=== PATIENT | female | born 1950 | race Caucasian/White ===

== ENCOUNTER → 2019-10-21 | Outpatient (CLI) | payer BC, MEDICARE ==
[2019-10-21 16:20] LABS: BASOPHILS % 0.6 % (0.0-2.0); EOSINOPHILS % 1.8 % (0.0-5.0); HEMATOCRIT. 39.8 % (36.0-48.0); HEMOGLOBIN. 13.7 g/dL (12.0-16.0); LYMPHOCYTES % 42.2 % (20.0-50.0); MEAN CORPUSCULAR HEMOGLOBIN 31.2 pg (28.0-32.0); MEAN CORPUSCULAR VOLUME 90.7 fL (81.0-99.0); MONOCYTES % 5.7 % (2.0-8.0); NEUTROPHILS % 49.7 % (40.0-76.0); PLATELET 198 x1000/uL (130-400); RED BLOOD CELL COUNT 4.39 mill/uL (4.2-5.4); RED CELL DISTRIBUTION WIDTH 12.5 % (11.6-14.6)
[2019-10-21 16:24] LABS: CHLORIDE 109 mEq/L (98-107)
[2019-10-21 16:31] LABS: LDL CHOLESTEROL 90 mg/dL (5-100)
[2019-10-21 16:33] LABS: HDL CHOLESTEROL 56 mg/dL (40-59); T4 FREE 1.11 ng/dL (0.76-1.46)
[2019-10-21 16:52] LABS: FOLIC ACID (FOLATE) SERUM 4.4 ng/mL (>5.38)
[2019-10-23 09:06] LABS: VITAMIN D 25-OH 14.7 ng/mL (30.0-100.0)
[2019-10-23 15:06] LABS: ANTI-NUCLEAR ANTIBODIES DIRECT Positive (Negative)
[2019-10-28 04:11] LABS: METHYLMALONIC ACID 151 nmol/L (0-378)
== END | disposition home or self-care (01) ==
LOC: LAB 15:05
PROVIDERS: ATTEND Internal Medicine Endocrinology, Diabetes & Metabolism
DX: M47.812 Spondylosis without myelopathy or radiculopathy, cervical region (principal); M25.78 Osteophyte, vertebrae; I10 Essential (primary) hypertension; E78.5 Hyperlipidemia, unspecified; M25.511 Pain in right shoulder; M25.512 Pain in left shoulder
CPT/HCPCS: 36415; 72040; 73030; 80053; 80061; 82306; 82607; 82746; 83036; 83921; 84439; 84443; 85025; 85651; 86038; 86431

== ENCOUNTER → 2020-04-05 | Outpatient (CLI) | payer BC, MEDICARE ==
[2020-04-05 10:52] LABS: BASOPHILS % 0.6 % (0.0-2.0); EOSINOPHILS % 4.5 % (0.0-5.0); HEMATOCRIT. 38.6 % (36.0-48.0); HEMOGLOBIN. 13.2 g/dL (12.0-16.0); LYMPHOCYTES % 33.1 % (20.0-50.0); MEAN CORPUSCULAR HEMOGLOBIN 31.1 pg (28.0-32.0); MEAN CORPUSCULAR VOLUME 90.9 fL (81.0-99.0); MONOCYTES % 8.7 % (2.0-8.0); NEUTROPHILS % 53.1 % (40.0-76.0); PLATELET 203 x1000/uL (130-400); RED BLOOD CELL COUNT 4.25 mill/uL (4.2-5.4); RED CELL DISTRIBUTION WIDTH 13.2 % (11.6-14.6)
[2020-04-05 11:03] LABS: CHLORIDE 109 mEq/L (98-107)
[2020-04-05 12:06] LABS: FOLIC ACID (FOLATE) SERUM 16.8 ng/mL (>5.38)
[2020-04-06 17:06] LABS: ANTI-DNA DOUBLE STRANDED QUANT 1 IU/mL (0-9); ANTI-NUCLEAR ANTIBODIES DIRECT Positive (Negative); ANTI-SCLERODERMA-70 AB <0.2 AI (0.0-0.9); RNP ANTIBODY 0.2 AI (0.0-0.9); SJOGRENS ANTI SS-A < 0.2 AI (0.0-0.9); SJOGRENS ANTI SS-B < 0.2 AI (0.0-0.9); SMITH ABS < 0.2 AI (0.0-0.9)
[2020-04-07 13:06] LABS: ACTIN (SMOOTH MUSCLE) ANTIBODY 23 Units (0-19)
[2020-04-11 13:06] LABS: ANTI-PARIETAL CELL AB 1.9 Units (0.0-20.0)
== END | disposition home or self-care (01) ==
LOC: LAB 10:16
PROVIDERS: ATTEND Internal Medicine Endocrinology, Diabetes & Metabolism
DX: M17.12 Unilateral primary osteoarthritis, left knee (principal); M25.762 Osteophyte, left knee; E53.8 Deficiency of other specified B group vitamins
CPT/HCPCS: 36415; 73560; 80053; 82306; 82746; 85025; 85651; 86038

== ENCOUNTER 2024-06-09 16:36 | Emergency (ER) | payer BC, MEDICARE ==
[~2024-06-09] VITALS: Ht 152.4 cm; Wt 73.0 kg
[2024-06-09 16:47] VITALS: BP 139/60; RESP 16; TEMP 98; O2SAT 100
[2024-06-09 16:49] VITALS: PULSE 72; O2SAT 98
[2024-06-09] MEDS ORDERED: ACETAMINOPHEN 325MG TABLET PO ONE (20:30)
[2024-06-09 21:34] LABS: CHLORIDE 106 mEq/L (98-107); POTASSIUM 4.6 mEq/L (3.5-5.1); SODIUM 139 mEq/L (136-145)
[2024-06-09 21:35] LABS: CALCIUM 10.3 mg/dL (8.7-10.4); CARBON DIOXIDE 28 mEq/L (21-32)
[2024-06-09 21:40] LABS: CREATININE 0.7 mg/dL (0.6-1.0); GLUCOSE 92 mg/dL (70-105); UREA NITROGEN BLOOD 9 mg/dL (9-23)
[2024-06-09 21:56] LABS: BASOPHILS % 0.8 % (0.0-2.0); EOSINOPHILS % 1.9 % (0.0-5.0); HEMATOCRIT. 43.2 % (36.0-48.0); HEMOGLOBIN. 14.2 g/dL (12.0-16.0); LYMPHOCYTES % 37.9 % (20.0-50.0); MEAN CORPUSCULAR HEMOGLOBIN 29.8 pg (28.0-32.0); MEAN CORPUSCULAR HGB CONC 32.8 g/dL (31.0-37.0); MEAN CORPUSCULAR VOLUME 90.9 fL (81.0-99.0); MEAN PLATELET VOLUME 7.1 fl (7.4-10.4); MONOCYTES % 4.8 % (2.0-8.0); NEUTROPHILS % 54.6 % (40.0-76.0); PLATELET 214 x1000/uL (130-400); RED BLOOD CELL COUNT 4.75 mill/uL (4.2-5.4); RED CELL DISTRIBUTION WIDTH 12.8 % (11.6-14.6); WHITE BLOOD COUNT 5.9 x1000/uL (4.5-11.0)
[2024-06-09] MEDS ORDERED: ACETAMINOPHEN 325MG TABLET PO NR (22:30)
[2024-06-09] MEDS ORDERED: OFLO5DRO4 RIGHT EAR (23:21)
== END 2024-06-09 22:27 | disposition home or self-care (01) ==
LOC: ER 16:36
DX: H92.02 Otalgia, left ear (principal)
CPT/HCPCS: 36415; 80048; 85025; 99283

== ENCOUNTER 2024-09-14 20:00 | Inpatient (IN) | payer BC, MEDICARE ==
[~2024-09-14] VITALS: Ht 162.6 cm; Wt 68.0 kg
[~2024-09-14 20:00] MED LIST: OFLO5DRO4 RIGHT EAR
[2024-09-14 20:51] LABS: HEMATOCRIT. 40.8 % (36.0-48.0); HEMOGLOBIN. 13.5 g/dL (12.0-16.0); MEAN CORPUSCULAR HEMOGLOBIN 30.2 pg (28.0-32.0); MEAN CORPUSCULAR VOLUME 91.3 fL (81.0-99.0); MEAN PLATELET VOLUME 6.9 fl (7.4-10.4); PLATELET 195 x1000/uL (130-400); RED BLOOD CELL COUNT 4.47 mill/uL (4.2-5.4); RED CELL DISTRIBUTION WIDTH 13.2 % (11.6-14.6); WHITE BLOOD COUNT 17.3 x1000/uL (4.5-11.0)
[2024-09-14 20:53] LABS: DIFFERENTIAL COMMENT 1
[2024-09-14 20:59] LABS: CHLORIDE 104 mEq/L (98-107); POTASSIUM 4.5 mEq/L (3.5-5.1); SODIUM 139 mEq/L (136-145)
[2024-09-14 21:00] LABS: CALCIUM 9.7 mg/dL (8.7-10.4); CARBON DIOXIDE 27 mEq/L (21-32)
[2024-09-14 21:04] LABS: PROTHROMBIN TIME 10.8 sec (9.6-11.0)
[2024-09-14 21:05] LABS: CREATININE 0.8 mg/dL (0.6-1.0); GLUCOSE 109 mg/dL (70-105); UREA NITROGEN BLOOD 15 mg/dL (9-23)
[2024-09-14 21:06] LABS: TROPONIN I HIGH SENSITIVITY 4 ng/L (3.0-34)
[2024-09-14 21:21] LABS: PLATELET ESTIMATE NORMAL
[2024-09-15 00:18] LABS: TROPONIN I HIGH SENSITIVITY 4 ng/L (3.0-34)
[2024-09-15] MEDS: ASPIRIN 325MG EC TABLET PO ONE (02:00)
[2024-09-15] MEDS: ASPIRIN 325MG EC TABLET PO NR (05:52)
[2024-09-15 07:24] LABS: CLARITY URINE CLEAR (CLEAR); COLOR URINE DARK YELLOW (YELLOW); GLUCOSE URINE NEGATIVE (NEGATIVE); KETONES URINE NEGATIVE (NEGATIVE); LEUKOCYTE ESTERASE URINE TRACE (NEGATIVE); NITRITE URINE NEGATIVE (NEGATIVE); OCCULT BLOOD URINE TRACE (NEGATIVE); PH URINE 5.5 (4.5-8.0); PROTEIN URINE 1+ (NEGATIVE); SPECIFIC GRAVITY URINE 1.025 (1.005-1.030)
[2024-09-15 07:58] LABS: MUCUS URINE 1+ /lpf (< = 2+); SQUAMOUS EPITHELIAL CELL URINE 1+ /lpf (RARE/1+)
[2024-09-15 07:59] LABS: BACTERIA URINE TRACE
[2024-09-15 08:00] LABS: WBC URINE 0-2 /hpf (0-2)
[2024-09-15] MEDS ORDERED: ONDANSETRON HCL 4MG/2ML INJ IV PRN (10:30)
[2024-09-15] MEDS: CEFTRIAXONE 1GM/50ML 50 ML IV SCH (18:42)
[2024-09-15 20:30] VITALS: BP 155/75; PULSE 70; RESP 17; TEMP 36.418
[2024-09-15] MEDS: ACETAMINOPHEN 325MG TABLET PO PRN (20:41)
[2024-09-15 20:45] VITALS: BP 155/75; PULSE 70; RESP 17; TEMP 36.3918; O2SAT 99
[2024-09-16 00:50] VITALS: BP 154/70; PULSE 79; RESP 17; TEMP 36.55848; O2SAT 98
[2024-09-16 04:20] VITALS: BP 145/50; PULSE 83; RESP 17; TEMP 36.44736; O2SAT 98
[2024-09-16 08:00] VITALS: BP 144/57; PULSE 60; RESP 17; TEMP 36.89184; O2SAT 97
[2024-09-16 08:42] LABS: BASOPHILS % 0.3 % (0.0-2.0); EOSINOPHILS % 3.4 % (0.0-5.0); HEMATOCRIT. 37.2 % (36.0-48.0); HEMOGLOBIN. 12.4 g/dL (12.0-16.0); LYMPHOCYTES % 28.2 % (20.0-50.0); MEAN CORPUSCULAR HEMOGLOBIN 30.4 pg (28.0-32.0); MEAN CORPUSCULAR HGB CONC 33.3 g/dL (31.0-37.0); MEAN CORPUSCULAR VOLUME 91.5 fL (81.0-99.0); MEAN PLATELET VOLUME 7.9 fl (7.4-10.4); MONOCYTES % 9.6 % (2.0-8.0); NEUTROPHILS % 58.5 % (40.0-76.0); PLATELET 158 x1000/uL (130-400); RED BLOOD CELL COUNT 4.06 mill/uL (4.2-5.4); RED CELL DISTRIBUTION WIDTH 13.3 % (11.6-14.6); WHITE BLOOD COUNT 4.5 x1000/uL (4.5-11.0)
[2024-09-16 12:00] VITALS: BP 156/72; PULSE 78; RESP 18; TEMP 36.44736; O2SAT 99
[2024-09-16] MEDS ORDERED: AMOX1TAB16 MT (13:00)
[2024-09-16 15:47] VITALS: BP 140/78; PULSE 70; TEMP 97.6; O2SAT 100
[2024-09-16 16:01] VITALS: BP 140/78; PULSE 77; RESP 18; TEMP 36.44736; O2SAT 100
== END 2024-09-16 16:33 | disposition home or self-care (01) | DRG 872 ==
LOC: ER 20:00 → 5WST 09-15 01:56
PROVIDERS: ADMIT Internal Medicine; ATTEND Internal Medicine
DX: A41.9 Sepsis, unspecified organism (principal); L03.211 Cellulitis of face; G90.89 Other disorders of autonomic nervous system; E78.5 Hyperlipidemia, unspecified; I10 Essential (primary) hypertension; K04.7 Periapical abscess without sinus
CPT/HCPCS: 36415; 71045; 73030; 80048; 81003; 83880; 84145; 84484; 85025; 93005; 93306; 99285; J0696